=== PATIENT | female | born 1995 | race Caucasian/White ===

== ENCOUNTER 2017-07-28 20:41 | Emergency (ER) | payer OTHER ==
[2017-07-28] MEDS ORDERED: Lactated Ringers 1,000 ML IV SCH (20:45)
[2017-07-28] MEDS ORDERED: Ondansetron 4 MG/2 ML SDV IVPUSH ONE (20:45)
[2017-07-28] MEDS ORDERED: Sodium Chloride 0.9% 10 ML Syringe FLUSH PRN ×2 (20:45→20:52)
[2017-07-28] MEDS ORDERED: Iopamidol 612 MG/ML 150 ML Bottle IVPUSH ONE (20:52)
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
[2017-07-28] MEDS ORDERED: Acetaminophen 325 MG Tab PO ONE (22:05)
--- NOTE | 2017-07-29 07:14 | CT ---
Head CT Technique: Multiple axial sections through the brain were obtained. Intravenous contrast was not utilized. Comparison: No previous intracranial imaging. Findings: Ventricles along with basal cisterns and sulci over the convexities are within normal limits for the patient's age. No abnormal parenchymal densities are seen. No evidence of intracranial hemorrhage. No midline shift or mass effect is seen. Mild mucosal thickening is noted within the ethmoid and frontal sinuses and maxillary sinuses. Retention cyst is noted within the left sphenoid sinus measuring 1.2 cm. Additional mucosal thickening is seen within the sphenoid sinus. No acute calvarial abnormality is seen. Impression: 1. Mild sinus findings most likely chronic. 2. No acute intracranial abnormality is identified. Diagnostic code #2 I agree with preliminary report issued by [facility] ([facility] preliminary report dictated on 07/28/17, 10:28 PM Central Time)
--- NOTE | 2017-07-29 07:20 | CR ---
Right knee: Four views of the right knee were obtained. Comparison: No previous knee exam. Medial and lateral joint spaces are preserved. No joint effusion is seen. No fracture or other abnormality is identified. Impression: 1. No abnormality is seen on right knee exam. Diagnostic code #1
--- NOTE | 2017-07-29 07:32 | CR ---
Left second finger: Four views of the left second finger were obtained. Comparison: No previous study. Joint spaces are preserved. No fracture, dislocation or other bony abnormality is seen. Impression: 1. No abnormality is identified on left second finger study. Diagnostic code #1
--- NOTE | 2017-07-29 07:32 | CT ---
CT thoracic spine Technique: Multiple axial sections through the thoracic spine were obtained. Reconstructed coronal and sagittal images were reviewed. Comparison: No previous thoracic spine imaging. Findings: Vertebral body heights and disc spaces are maintained. Posterior discs appear preserved. No focal disc herniation is seen. No fracture or abnormal subluxation is identified. Impression: 1. No abnormality is identified on CT study of the thoracic spine. Diagnostic code #1 Agree with preliminary report issued by [facility] ([facility] preliminary report dictated on 07/28/17, 10:31 PM Central Time)
--- NOTE | 2017-07-29 07:32 | CT ---
CT lumbar spine Technique: Multiple axial sections through the lumbar spine were obtained. Reconstructed coronal and sagittal images were obtained. Comparison: No prior lumbar spine imaging. Findings: Vertebral body heights and disc spaces are maintained. Physiologic disc bulge noted at L5-S1. No focal disc herniation is seen. No fracture is identified. No bony central or bony neural foraminal stenosis is seen. No abnormal subluxation is seen on the reconstructed sagittal images. Impression: 1. No abnormality is identified on CT study of the lumbar spine. Diagnostic code #1 Agree with preliminary report issued by [facility] ([facility] preliminary report dictated on 07/28/17, 10:31 PM Central Time)
--- NOTE | 2017-07-29 07:32 | CT ---
CT cervical spine Technique: Multiple axial sections were obtained from above C1 inferiorly to the bottom of T2. Reconstructed sagittal and coronal images were reviewed. Comparison: No previous cervical spine imaging. Findings: Mucosal thickening seen within the paranasal sinuses. Mastoid sinuses are clear. Middle ear cavities are clear. Posterior skull base is intact. Findings: Vertebral bodies and posterior arches are intact. No fracture is seen. No bony central or bony neural foraminal stenosis is seen. No abnormal subluxation is seen on the reconstructed sagittal images. Mild scoliosis is seen. Impression: 1. Mild scoliosis which is possibly positional. 2. Nothing acute is identified on CT study of the cervical spine. Diagnostic code #2 Agree with preliminary report issued by [facility] ([facility] preliminary report dictated on 07/28/17, 10:30 PM Central Time)
--- NOTE | 2017-07-29 07:32 | CT ---
CT chest Technique: Multiple axial sections were obtained from above the lung apices inferiorly through the lung bases. Intravenous contrast was utilized. Comparison: No prior chest imaging. Findings: Mediastinum and hilar regions appear within normal limits. Opacified great vessels appear within normal limits. No pericardial effusion is seen. No axillary adenopathy is identified. Lung window settings show no pulmonary contusion or pleural effusions. No pneumothorax is identified. Bone window settings were reviewed which show no discrete rib fracture. Impression: 1. No abnormality is identified on CT study of the chest. Diagnostic code #1 Agree with preliminary report issued by [email or web address] ([facility] preliminary report dictated on 07/28/17, 10:33 PM Central Time) CT abdomen and pelvis Technique: Multiple axial sections were obtained from above the dome of the diaphragm inferiorly through the pubic symphysis. Intravenous contrast was utilized. No oral contrast has been given. Delayed images were obtained through the bladder. Comparison: No prior abdominal or pelvic imaging. Findings: Liver shows no focal abnormality. Spleen appears within normal limits. Adrenal glands show no nodule. Kidneys show symmetric contrast enhancement and appear within normal limits. Pancreas is normal. Aorta shows no aneurysmal dilatation. No retroperitoneal adenopathy or mesenteric abnormalities are seen. No pelvic mass or adenopathy is seen. No free fluid or inflammatory change is seen. Delayed images show contrast within the distal ureters and within the bladder. Bone window settings were reviewed which show no discrete pelvic fracture. Impression: 1. No abnormality is identified on CT study of the abdomen and pelvis. Diagnostic code #1 Agree with preliminary report issued by [email or web address] ([facility] preliminary report dictated on 07/28/17, 10:35 PM Central Time)
== END 2017-07-28 23:16 | disposition home or self-care (01) ==
LOC: JD.ED 20:41
DX: S16.1XXA Strain of muscle, fascia and tendon at neck level, initial encounter (principal); S29.019A Strain of muscle and tendon of unspecified wall of thorax, initial encounter; S39.012A Strain of muscle, fascia and tendon of lower back, initial encounter; S63.631A Sprain of interphalangeal joint of left index finger, initial encounter; S80.01XA Contusion of right knee, initial encounter; S09.90XA Unspecified injury of head, initial encounter; V49.9XXA Car occupant (driver) (passenger) injured in unspecified traffic accident, initial encounter
CPT/HCPCS: 36415; 70450; 71260; 72125; 72128; 72131; 73140; 73564; 74177; 80053; 83690; 84703; 85025; 96361; 96374; 99285; A9270; G0480; J2405; J7050; J7120; Q9967

== ENCOUNTER 2017-08-18 10:59 | Emergency (ER) | payer OTHER ==
[2017-08-18] MEDS ORDERED: Tamsulosin 0.4 MG Cap.ER PO ONE (11:51)
[2017-08-18] MEDS ORDERED: Ketorolac 30 MG/ML SDV IVPUSH ONE (11:51)
[2017-08-18] MEDS ORDERED: Ondansetron 4 MG/2 ML SDV IVPUSH ONE (11:51)
[2017-08-18] MEDS ORDERED: Sodium Chloride 0.9% 10 ML Syringe FLUSH PRN (11:51)
[2017-08-18] MEDS ORDERED: HYDROmorphone 0.5 MG/0.5 ML Syringe IVPUSH ONE (11:52)
--- NOTE | 2017-08-18 11:57 | EDM.PDOC ---
ED HPI GENERAL MEDICAL PROBLEM - General Chief Complaint: Flank Pain Stated Complaint: RIGHT SIDE PAIN Time Seen by Provider: 08/18/17 11:42 Source of Information: Reports: Patient History Limitations: Reports: No Limitations - History of Present Illness INITIAL COMMENTS - FREE TEXT/NARRATIVE: Patient is a 22-year-old female who presents to the ED complaining of pain to the right flank. She was recently diagnosed with kidney stones this past Saturday placed on [place], Zofran, and Flomax. States up until last night the pain has been doing okay. She did get nauseated with taking the [place] and stopped per recommendations by pharmacist. She's been taking Tylenol ever since. She has been taking Flomax daily up until today. States last night started having worsening pain to the right flank with inability to get comfortable. She did not sleep much last night. No recent nausea/vomiting. No fever/chills, no dysuria, no ab pain, chest pain, shortness of breath. No obvious hematuria present. She denies being . Treatments [employer]: Reports: Other (see below) Right Flank Pain Score (Numeric/FACES): 10 - Related Data Allergies Allergy/AdvReac Type Severity Reaction Status Date / Time No Known Allergies Allergy Verified 07/28/17 20:55 Home Meds: Home Meds Ondansetron [Zofran] 4 mg PO ASDIRECTED 08/18/17 [History] Tamsulosin [Flomax] 0.4 mg PO DAILY 08/18/17 [History] Past Medical History - Past Surgical History HEENT Surgical History: Reports: Oral Surgery Social & Family History - Tobacco Use Smoking Status *Q: Never Smoker - Caffeine Use Caffeine Use: Reports: Coffee, Soda - Recreational Drug Use Recreational Drug Use: No ED ROS GENERAL - Review of Systems Review Of Systems: ROS reveals no pertinent complaints other than HPI. ED EXAM, GI/ABD - Physical Exam Exam: See Below Exam Limited By: No Limitations General Appearance: Alert, WD/WN, No Apparent Distress Ears: Hearing Grossly Normal Nose: Normal Inspection Throat/Mouth: Normal Oropharynx, Normal Voice, No Airway Compromise Neck: Normal Inspection, Supple Respiratory/Chest: No Respiratory Distress, Lungs Clear, Normal Breath Sounds, No Accessory Muscle Use, Chest Non-Tender Cardiovascular: Normal Peripheral Pulses, Regular Rate, Rhythm GI/Abdominal Exam: Normal Bowel Sounds, Soft, No Distention Back Exam: Normal Inspection, Full Range of Motion, CVA Tenderness (R). No: CVA Tenderness (L) Extremities: Normal Inspection Neurological: Alert, Oriented, CN II-XII Intact, Normal Cognition, No Motor/ Sensory Deficits Psychiatric: Normal Affect, Normal Mood Skin Exam: Warm, Dry, Intact, Normal Color Course - Vital Signs Last Recorded V/S: Last Vital Signs Temp 97.9 F 08/18/17 11:21 Pulse 72 08/18/17 11:21 Resp 20 08/18/17 11:21 BP 111/98 H 08/18/17 11:21 Pulse Ox 99 08/18/17 11:21 - Orders/Labs/Meds Orders: Active Orders 24 hr Category Date Time Status Peripheral IV Care [RC] . DIRECTED Care 08/18/17 11:51 Active CULTURE URINE [RM] Stat Lab 08/18/17 11:35 Received Sodium Chloride 0.9% [Normal Saline] 500 ml Med 08/18/17 12:00 Active IV .BOLUS Sodium Chloride 0.9% [Saline Flush] Med 08/18/17 11:51 Active 10 ml FLUSH ASDIRECTED PRN Peripheral IV Insertion Adult [OM.PC] Stat Oth 08/18/17 11:51 Ordered Medication Orders Sodium Chloride (Normal Saline) 500 mls @ 999 mls/hr IV .BOLUS SUSIE Last Admin: 08/18/17 12:32 Dose: 999 mls/hr Sodium Chloride (Saline Flush) 10 ml FLUSH ASDIRECTED PRN PRN Reason: Keep Vein Open Last Admin: 08/18/17 12:36 Dose: 10 ml Labs: Laboratory Tests 08/18/17 08/18/17 08/18/17 Range/Units 11:35 12:42 12:42 WBC 5.16 (3.98-10.04) K/mm3 RBC 4.54 (3.98-5.22) M/mm3 Hgb 13.5 (11.2-15.7) gm/L Hct 39.0 (34.1-44.9) % MCV 85.9 (79.4-94.8) fl MCH 29.7 (25.6-32.2) pg MCHC 34.6 (32.2-35.5) g/dl RDW Std Deviation 37.7 (36.4-46.3) fL Plt Count 225 (182-369) K/mm3 MPV 8.9 L (9.4-12.3) fl Neut % (Auto) 61.8 (34.0-71.1) % Lymph % (Auto) 26.0 (19.3-51.7) % [place] % (Auto) 8.5 (4.7-12.5) % Eos % (Auto) 3.3 (0.7-5.8) Baso % (Auto) 0.4 (0.1-1.2) % Neut # (Auto) 3.19 (1.56-6.13) K/mm3 Lymph # (Auto) 1.34 (1.18-3.74) K/mm3 [place] # (Auto) 0.44 H (0.24-0.36) K/mm3 Eos # (Auto) 0.17 (0.04-0.36) K/mm3 Baso # (Auto) 0.02 (0.01-0.08) K/mm3 Sodium 143 (136-145) mEq/L Potassium 3.8 (3.5-5.1) mEq/L Chloride 108 H (98-107) mEq/L Carbon Dioxide 26 (21-32) mEq/L Anion Gap 12.8 (5-15) BUN 14 (7-18) mg/dL Creatinine 0.9 (0.55-1.02) mg/dL Est Cr Clr Drug Dosing 78.86 mL/min Estimated GFR (MDRD) > 60 (>60) mL/min BUN/Creatinine Ratio 15.6 (14-18) Glucose 94 (74-106) mg/dL Calcium 9.3 (8.5-10.1) mg/dL Total Bilirubin 0.6 (0.2-1.0) mg/dL AST 11 L (15-37) U/L ALT 13 L (14-59) U/L Alkaline Phosphatase 53 (46-116) U/L C-Reactive Protein < 0.2 (<1.0) mg/dL Total Protein 7.4 (6.4-8.2) g/dl Albumin 4.0 (3.4-5.0) g/dl Globulin 3.4 gm/dL Albumin/Globulin Ratio 1.2 (1-2) Urine Color Light yellow (Yellow) Urine Appearance Slt cloudy H (Clear) Urine pH 6.0 (5.0-8.0) Ur Specific [place] > or = 1.030 (1.005-1.030) Urine Protein 1+ H (Negative) Urine Glucose (UA) Negative (Negative) Urine Ketones Negative (Negative) Urine Occult Blood 2+ H (Negative) Urine Nitrite Negative (Negative) Urine Bilirubin 1+ H (Negative) Urine Urobilinogen 0.2 (0.2-1.0) Ur Leukocyte Esterase Trace H (Negative) Urine RBC 30-40 H (0-5) /hpf Urine WBC 5-10 H (0-5) /hpf Ur Epithelial Cells 0-5 (0-5) /hpf Amorphous Sediment Few H (NOT SEEN) /hpf Urine Bacteria Few (FEW) /hpf Urine Mucus Few (FEW) /hpf Meds: Medications Generic Name Dose Route Start Last Admin Trade Name Freq PRN Reason Stop Dose Admin Sodium Chloride 500 mls @ 999 mls/hr 08/18/17 12:00 08/18/17 12:32 Normal Saline IV 999 mls/hr .BOLUS SUSIE Administration Sodium Chloride 10 ml 08/18/17 11:51 08/18/17 12:36 Saline Flush FLUSH 10 ml ASDIRECTED PRN Administration Keep Vein Open Discontinued Medications Generic Name Dose Route Start Last Admin Trade Name Freq PRN Reason Stop Dose Admin Hydromorphone HCl 0.5 mg 08/18/17 11:52 08/18/17 12:35 Dilaudid IVPUSH 08/18/17 11:53 0.5 mg ONETIME ONE Administration Ketorolac Tromethamine 30 mg 08/18/17 11:51 08/18/17 12:34 Toradol IVPUSH 08/18/17 11:52 30 mg ONETIME ONE Administration Ondansetron HCl 4 mg 08/18/17 11:51 08/18/17 12:32 Zofran IVPUSH 08/18/17 11:52 4 mg ONETIME ONE Administration Tamsulosin HCl 0.4 mg 08/18/17 11:51 08/18/17 12:36 Flomax PO 08/18/17 11:52 0.4 mg ONETIME ONE Administration - Re-Assessments/Exams Free Text/Narrative Re-Assessment/Exam: IV established with normal saline 999 mL per hour, Zofran 4 mg IVP, Toradol 30 mg IVP, and Dilaudid 0.5 mg IVP. Initial lab studies include CBC, chem 14, CRP, and UA. We are attempting to obtain clinic visit notes and CT study impression this past Saturday with diagnosis of kidney stone. UA revealed slightly cloudy appearance, protein one plus, occult blood 2+, bilirubin 1+, trace leukocyte Estrace, urine rbc's 30-40, urine wbc's 5-10 amorphous sediment few. 08/18/17 12:20 IV established by me. 20g to the left a/c with no infiltration noted with flush. Attempted to have blood collected from site but due to slowness d/c. Lab will draw. 08/18/17 13:30Labs reviewed: CBC and chemistry panel essentially normal. CRP less than 0.2. Creatinine 0.9. Ordered urine culture. 08/18/17 13:31 review previous clinic visit and CT of the abdomen and pelvis that was obtained August 13, 2017 impression: Probable ureteral calculus near the right UVJ measuring up to 5 mm. There is mild to moderate right-sided hydronephrosis. 2 mm right upper pole nonobstructing renal parenchymal calculus. 08/18/17 13:33 Per patient pain is controlled. No nausea present. Will discharge patient home with instructions as documented. Departure - Departure Time of Disposition: 13:49 Disposition: Home, Self-Care 01 Condition: Good Clinical Impression: Kidney stone on right side - Discharge Information Instructions: Kidney Stones, [id number], Pain Medicine Instructions, Easy-to- Read Referrals: PCP,None [Primary Care Provider] - Forms: ED Department Discharge, ED Return to Work/School Form Additional Instructions: Continue taking the Flomax, Zofran, and hydrocodone as prescribed. Push the fluids. Strain all urine voids. Do not drive today since receiving a sedative medication while in the ED and also while taking the hydrocodone. Follow-up with PCP first part of next week for reevaluation of stone has not passed. Return to ED for any new or worsening symptoms including: Worsening pain, fever , nausea or vomiting, or any additional complaints. - My Orders Last 24 Hours: My Active Orders 08/18/17 11:35 CULTURE URINE [RM] Stat 08/18/17 11:51 Peripheral IV Care [RC] . DIRECTED Sodium Chloride 0.9% [Saline Flush] 10 ml FLUSH ASDIRECTED PRN Peripheral IV Insertion Adult [OM.PC] Stat 08/18/17 12:00 Sodium Chloride 0.9% [Normal Saline] 500 ml IV .BOLUS - Assessment/Plan Last 24 Hours: My Active Orders 08/18/17 11:35 CULTURE URINE [RM] Stat 08/18/17 11:51 Peripheral IV Care [RC] . DIRECTED Sodium Chloride 0.9% [Saline Flush] 10 ml FLUSH ASDIRECTED PRN Peripheral IV Insertion Adult [OM.PC] Stat 08/18/17 12:00 Sodium Chloride 0.9% [Normal Saline] 500 ml IV .BOLUS
[2017-08-18] MEDS ORDERED: Sodium Chloride 0.9% 500 ML IV SCH (12:00)
== END 2017-08-18 14:10 | disposition home or self-care (01) ==
LOC: JD.ED 10:59
DX: N13.2 Hydronephrosis with renal and ureteral calculous obstruction (principal); Z79.899 Other long term (current) drug therapy
CPT/HCPCS: 36415; 80053; 81001; 85025; 86140; 87086; 96361; 96374; 96375; 99284; A9270; J1170; J1885; J2405; J7040; J7050

== ENCOUNTER 2018-12-29 17:23 | Emergency (ER) | payer OTHER ==
--- NOTE | 2018-12-29 20:00 | EDM.PDOC ---
ED HPI GENERAL MEDICAL PROBLEM - General Chief Complaint: Chest Pain Stated Complaint: HEADACHE AND CHEST PAIN Time Seen by Provider: 12/29/18 17:33 Source of Information: Reports: Patient, RN Notes Reviewed - History of Present Illness INITIAL COMMENTS - FREE TEXT/NARRATIVE: 23-year-old female started with some rash and hives 2 days ago. She was seen at the clinic started on prednisone and hydroxyzine yesterday evening and today she has had some discomfort upper mid chest with swallowing. that is mostly what brings her in at this time. The rash and hives are gone other than some slight redness upper neck. She has very slight scratchy throat very mild nasal congestion. She has not been coughing. No definite fever or chills. No abdominal pain nausea or vomiting. Middle Chest Pain Score (Numeric/FACES): 8 Headache Pain Score (Numeric/FACES): 7 - Related Data Allergies Allergy/AdvReac Type Severity Reaction Status Date / Time No Known Allergies Allergy Verified 12/29/18 17:35 Home Meds: Home Meds Norgestimate-Ethinyl Estradiol [[place] 28 Tablet] 1 tab PO DAILY 12/29/18 [ History] buPROPion [Wellbutrin] 150 mg PO BEDTIME 12/29/18 [History] Past Medical History - Past Surgical History HEENT Surgical History: Reports: Oral Surgery Social & Family History - Tobacco Use Smoking Status *Q: Never Smoker - Caffeine Use Caffeine Use: Reports: None - Recreational Drug Use Recreational Drug Use: No ED ROS GENERAL - Review of Systems Review Of Systems: See Below Constitutional: Denies: Fever, Chills, Diaphoresis HEENT: Reports: Rhinitis, Throat Pain Respiratory: Denies: Shortness of Breath, Pleuritic Chest Pain Cardiovascular: Reports: Chest Pain GI/Abdominal: Reports: Abdominal Pain. Denies: Diarrhea, Nausea, Vomiting Musculoskeletal: Denies: Neck Pain, Shoulder Pain, Arm Pain, Back Pain Skin: Reports: Rash (mostly gone) Neurological: Reports: Dizziness ED EXAM, GENERAL - Physical Exam Exam: See Below General Appearance: Alert, Anxious Eye Exam: Bilateral Eye: PERRL Nose: Normal Inspection Throat/Mouth: Normal Inspection Head: Atraumatic. No: Facial Swelling Neck: Supple, Full Range of Motion. No: Lymphadenopathy (L), Lymphadenopathy (R ) Respiratory/Chest: No Respiratory Distress, Lungs Clear, Normal Breath Sounds. No: Rhonchi, Wheezing Cardiovascular: Regular Rate, Rhythm GI/Abdominal: Soft, Non-Tender Back Exam: No: CVA Tenderness (L), CVA Tenderness (R) Extremities: Normal Inspection, Normal Range of Motion Neurological: Alert, Oriented, No Motor/Sensory Deficits Skin Exam: Warm, Dry, Normal Color Course - Vital Signs Last Recorded V/S: Last Vital Signs Temp 98.0 F 12/29/18 17:30 Pulse 62 12/29/18 17:30 Resp 20 12/29/18 17:30 BP 119/85 12/29/18 17:30 Pulse Ox 98 12/29/18 17:30 - Orders/Labs/Meds Labs: Laboratory Tests 12/29/18 12/29/18 12/29/18 Range/Units 18:53 18:53 18:53 WBC 11.94 H (3.98-10.04) K/mm3 RBC 4.61 (3.98-5.22) M/mm3 Hgb 13.5 (11.2-15.7) gm/L Hct 40.6 (34.1-44.9) % MCV 88.1 (79.4-94.8) fl MCH 29.3 (25.6-32.2) pg MCHC 33.3 (32.2-35.5) g/dl RDW Std Deviation 40.5 (36.4-46.3) fL Plt Count 262 (182-369) K/mm3 MPV 9.3 L (9.4-12.3) fl Neut % (Auto) 71.0 (34.0-71.1) % Lymph % (Auto) 21.8 (19.3-51.7) % [place] % (Auto) 7.1 (4.7-12.5) % Eos % (Auto) 0 L (0.7-5.8) Baso % (Auto) 0.0 L (0.1-1.2) % Neut # (Auto) 8.48 H (1.56-6.13) K/mm3 Lymph # (Auto) 2.60 (1.18-3.74) K/mm3 [place] # (Auto) 0.85 H (0.24-0.36) K/mm3 Eos # (Auto) 0.00 L (0.04-0.36) K/mm3 Baso # (Auto) 0.00 L (0.01-0.08) K/mm3 ESR 13 (0-20) mm/hr Sodium 142 (136-145) mEq/L Potassium 4.2 (3.5-5.1) mEq/L Chloride 107 (98-107) mEq/L Carbon Dioxide 24 (21-32) mEq/L Anion Gap 15.2 H (5-15) BUN 16 (7-18) mg/dL Creatinine 0.8 (0.55-1.02) mg/dL Est Cr Clr Drug Dosing 87.98 mL/min Estimated GFR (MDRD) > 60 (>60) mL/min BUN/Creatinine Ratio 20.0 H (14-18) Glucose 122 H (74-106) mg/dL Calcium 9.8 (8.5-10.1) mg/dL Total Bilirubin 0.2 (0.2-1.0) mg/dL AST 11 L (15-37) U/L ALT 28 (14-59) U/L Alkaline Phosphatase 62 (46-116) U/L Total Protein 7.7 (6.4-8.2) g/dl Albumin 4.0 (3.4-5.0) g/dl Globulin 3.7 gm/dL Albumin/Globulin Ratio 1.1 (1-2) - Re-Assessments/Exams Free Text/Narrative Re-Assessment/Exam: 12/30/18 14:54 labs, sed rate normal, discharge instr. as documented. Departure - Departure Time of Disposition: 20:15 Disposition: Home, Self-Care 01 Condition: Fair Clinical Impression: Viral syndrome Instructions: Viral Illness, Adult Referrals: Jasmine Keyes PA-C [Primary Care Provider] - Forms: ED Department Discharge Additional Instructions: Continue prednisone as prescribed, continue hydroxyzine 2-3 times daily for another day or 2, return to clinic this week if needed, return to ED if symptoms worsening in any significant way, follow up with Jasmine next week if not completely back to normal by than.
== END 2018-12-29 20:05 | disposition home or self-care (01) ==
LOC: JD.ED 17:23
DX: B34.9 Viral infection, unspecified (principal); Z79.899 Other long term (current) drug therapy
CPT/HCPCS: 36415; 80053; 85025; 85652; 99281; 99284

== ENCOUNTER 2022-04-26 09:06 | Emergency (ER) | payer OTHER ==
[2022-04-26] MEDS ORDERED: Sodium Chloride 0.9% 1,000 ML IV ONE (11:36)
[2022-04-26] MEDS ORDERED: Metoclopramide 10 MG/2 ML SDV IVPUSH ONE (11:36)
[2022-04-26] MEDS ORDERED: Sodium Chloride 0.9% 10 ML Syringe FLUSH PRN (11:36)
[2022-04-26] MEDS ORDERED: diphenhydrAMINE 50 MG/ML SDV IVPUSH ONE (11:37)
== END 2022-04-26 14:30 | disposition home or self-care (01) ==
LOC: JD.OBCHECK 09:06 → JD.ED 09:06 → SUPCPDRO 09:06 → EDSTATUS 09:20 → JD.ED 14:30
DX: O21.9 Vomiting of pregnancy, unspecified (principal); Z3A.09 9 weeks gestation of pregnancy; Z79.899 Other long term (current) drug therapy
CPT/HCPCS: 36415; 80053; 83735; 85025; 96361; 96374; 96375; 99284; J1200; J2765; J3490; J7030